=== PATIENT | female | born 1935 | race Caucasian/White ===

== ENCOUNTER → 2017-08-09 | Day surgery (SDC) | payer OTHER, MEDICARE ==
--- NOTE | 2017-08-08 17:13 | History & Physical Pre-Op ---
General Information and HPI History of Present Illness: Gayatri is an 81-year-old female with a long-standing and worsening complaint of a painful hammertoe second toe right foot. The patient is undergone an extended course of conservative care, including shoe gear and activity modification, rest, immobilization and courses of NSAIDs. None of this is yielded her any significant relief. The patient presents today for preoperative surgical consultation. Allergies/Medications Allergies: Coded Allergies: No Known Allergies (08/05/17) Home Med list Aspirin (Ecotrin*) 81 MG TABLET.DR 1 TAB PO DAILY HEART/BLOOD (Reported) Cholecalciferol (Vitamin D3) (Vitamin D) 2,000 UNIT CAPSULE 1 CAP PO DAILY SUPPLEMENT (Reported) Metoprolol Succ XL (Toprol XL) 25 MG TAB 1 TAB PO DAILY HEART/BP (Reported) Pravastatin Sodium (Pravachol) 20 MG TABLET 1 TAB PO DAILY CHOLESTEROL ( Reported) Past History Medical History Cardiovascular: hypertension, hyperlipidemia Surgical History Pertinent Surgical History: non-contributory Review of Systems Review of Systems: Unremarkable except for that noted in history of present illness Exam & Diagnostic Data Physical Exam: Lungs clear bilaterally. Heart sounds rate and rhythm regular. Lower extremity physical exam demonstrates intact pedal pulses bilaterally. Both dorsalis patient posterior tibial arteries are palpable bilaterally. Patient was seen in pain noted to the dorsal aspect of the right second digit. Assessment/Plan Assessment/Plan: Painful hammertoe. A lengthy discussion reviewing both surgical and conservative options without the patient at bedside and the patient elects to go forward surgery despite the risks. As Ranked By This Provider Problem List: 1. Other hammer toe(s) (acquired), right foot Attending MD Review Statement Attending Statement Attending MD Statement: examined this patient
[~2017-08-09] VITALS: Ht 165.1 cm; Wt 72.6 kg
[~2017-08-09] MED LIST: ASPIRIN EC81 M1 PO; PRAVACHOL20 M2 PO; TOPROL XL25 M1 PO; VITAMIN D2000 UNIT PO
--- NOTE | 2017-08-09 10:59 | Operative Report ---
Operative/Inv Procedure Report Surgery Date: 08/09/17 Name of Procedure: 1 arthroplasty second toe right foot 2 intraoperative administration of ankle block anesthesia Pre-Operative Diagnosis: 1 hammertoe second toe right foot Post-Operative Diagnosis: The same Estimated Blood Loss: scant Surgeon/Senior Instructional Designer: Giovanni KRAMER,Shekhar Stacy DPM Anesthesia: moderate sedation, block Operative/Procedure Note Note: After obtaining informed consent the patient was brought to the operating room and placed on the operating table in the supine position. The patient isn't securely fastened to the operating table utilizing safety belt. After Mr.'s of IV sedation, 10 mL of 0.5% Marcaine plain was infiltrated about the patient's right ankle. Well-padded ankle tourniquet was placed about the patient's right lower extremity. 2 g of Ancef were delivered intravenously times one dose. Right foot and ankle within scrubbed prepped and draped in usual aseptic manner. The right lower extremity is elevated to examine to limb, which point the ankle tourniquet inflated 250 mmHg. Attention directed to the right foot, where 2 transversely oriented semielliptical incisions centered over the proximal phalangeal joint were incised with 15 blade dissection was then carried down subtenons tissues reports a skin was freed and passed from the operative field. Transverse tenotomy was performed exposing the head of proximal phalanx was removed a sagittal bone saw. Was irrigated with normal sterile saline. The extensor tendon reapproximated 4-0 Vicryl and the skin edges reprepped with 4-0 nylon. Incision was then dressed with Xeroform 4 x 4's Kerlix and an Gaurav wrap. The patient was noted tolerate both procedure and anesthesia well and the patient was transported from the operating room to recovery by sent stable best assess intact all digits right foot.
== END ==
LOC: STS 01:12
DX: M20.41 Other hammer toe(s) (acquired), right foot (principal); I10 Essential (primary) hypertension; K21.9 Gastro-esophageal reflux disease without esophagitis
CPT/HCPCS: C1725; J0690; J2001; J2250